=== PATIENT | male | born 1955 | race Caucasian/White ===

== ENCOUNTER 2025-05-12 12:53 | Emergency (ER) | payer OTHER, MEDICARE, SELFPAY ==
[2025-05-12 13:02] VITALS: BP 167/93; PULSE 79; RESP 18; TEMP 36.5; O2SAT 95; BMI 26.6
--- NOTE | 2025-05-12 13:14 | CRLHL7_ITS ---
For Patients: As a result of the Century Cures Act, medical imaging exams and procedure reports are released immediately into your electronic medical record. You may view this report before your referring provider. If you have questions, please contact your health care provider. Indication: Trauma, pinned between gate and multiple cows, right low back, flank and hip pain. Technique: Noncontrast axial CT of the lumbar spine with coronal and sagittal reformats. Comparison: Same day CT abdomen and pelvis, CT right hip Findings: Acute nondisplaced fracture of the right L1 transverse process. Presumed acute displaced fracture of the right L2 transverse process. Age-indeterminate cortical irregularity of the right 12th rib. Preserved lumbar lordosis. No significant spondylolisthesis. Degenerative Schmorl`s nodes at the L1 and L2 superior endplates. Mild chronic inferior endplate concavity at L5. No high-grade neural foraminal or spinal canal stenosis. Impression: 1. Acute nondisplaced right L1 transverse process fracture. 2. Presumed acute displaced right L2 transverse process fracture. 3. Age-indeterminate right 12th rib deformity. Please note that all CT scans at this facility use dose modulation, iterative reconstruction, and/or weight-based dosing when appropriate to reduce radiation dose to as low as reasonably achievable. Dictated by Lillie Kline MD @ 05/12/2025 2:44:01 PM (Electronically Signed)
--- NOTE | 2025-05-12 13:14 | CRLHL7_ITS ---
For Patients: As a result of the Century Cures Act, medical imaging exams and procedure reports are released immediately into your electronic medical record. You may view this report before your referring provider. If you have questions, please contact your health care provider. INDICATION [Trauma] COMPARISON [None.] TECHNIQUE CT of the abdomen and pelvis with intravenous contrast ([91 milliliters Isovue 370]). CT of the right hip was also performed without intravenous contrast. FINDINGS Lung bases: [No pleural effusion.] Multiple punctate calcified granulomata are noted in the bibasilar lungs. Large hiatal hernia. Liver: [Smooth hepatic contour. Low-attenuation of the liver compatible with steatosis. No suspicious hepatic lesions are identified.] Gallbladder and biliary tree: [Unremarkable CT appearance.] Spleen: [There are few punctate calcified granulomata in the spleen.] Pancreas: [Moderate fatty infiltration of the pancreas.] Adrenal glands: [Normal.] Kidneys and ureters: [No hydroureteronephrosis.] [There are several bilateral renal cysts and subcentimeter hypoattenuating renal lesions which are too small to characterize, but statistically likely to represent cysts. There is a 12 millimeter indeterminate hypoattenuating exophytic left anterior upper pole renal lesion (3/47).] Bladder: [Unremarkable CT appearance.] Visualized reproductive organs: [Mildly enlarged prostate.] Gastrointestinal tract: [There is colonic diverticulosis. No focal abnormally dilated loops of bowel. Large hiatal hernia. 2 centimeter duodenal diverticulum.] Peritoneal cavity: [No free fluid or free air.] Lymph nodes: [No enlarged abdominal or pelvic lymph nodes by CT size criteria.] Vessels: [Mildly tortuous abdominal aorta. There are atherosclerotic vascular changes. Ectasia of the infrarenal abdominal aorta measuring up to 2.2 centimeters in the axial plane. Ectasia of the right common iliac artery measuring 15 millimeters in the axial plane. Ectasia of the left common iliac artery measuring 16 millimeters in the axial plane.] Abdominal and pelvic wall: [Tiny fat containing left inguinal hernia. Focal fatty change in the left rectus femoris muscle is compatible with a old muscular tear.]Scarring in the ventral abdominal wall. Bones: [There are osseous degenerative changes including mild degenerative change of the right hip.] Please see separately dictated report for findings in the lumbar spine. Aside from in the lumbar spine, there are no acute osseous findings. IMPRESSION [No acute findings in the abdomen or pelvis.] No acute osseous findings in the right hip. [Please see separately dictated report for findings in the lumbar spine.] A 12 millimeter hypoattenuating exophytic left anterior upper pole renal lesion is indeterminate. Recommend nonemergent renal ultrasound to further assess. Ectasia of the infrarenal abdominal aorta and bilateral common iliac arteries. Please see above for several incidental and chronic findings. Please note that all CT scans at this facility use dose modulation, iterative reconstruction, and/or weight-based dosing when appropriate to reduce radiation dose to as low as reasonably achievable. Dictated by: David Carpenter MD @ 05/12/2025 15:03:58 (Electronically Signed)
--- NOTE | 2025-05-12 13:15 | CRLHL7_ITS ---
For Patients: As a result of the 21st Century Cures Act, medical imaging exams and procedure reports are released immediately into your electronic medical record. You may view this report before your referring provider. If you have questions, please contact your health care provider. INDICATION: Trauma COMPARISON: None. TECHNIQUE: CT of the abdomen and pelvis with intravenous contrast (91 milliliters Isovue 370). CT of the right hip was also performed without intravenous contrast. FINDINGS: Lung bases: No pleural effusion. Multiple punctate calcified granulomata are noted in the bibasilar lungs. Large hiatal hernia. Liver: Smooth hepatic contour. Low-attenuation of the liver compatible with steatosis. No suspicious hepatic lesions are identified. Gallbladder and biliary tree: Unremarkable CT appearance. Spleen: There are few punctate calcified granulomata in the spleen. Pancreas: Moderate fatty infiltration of the pancreas. Adrenal glands: Normal. Kidneys and ureters: No hydroureteronephrosis. There are several bilateral renal cysts and subcentimeter hypoattenuating renal lesions which are too small to characterize, but statistically likely to represent cysts. There is a 12 millimeter indeterminate hypoattenuating exophytic left anterior upper pole renal lesion (3/47). Bladder: Unremarkable CT appearance. Visualized reproductive organs: Mildly enlarged prostate. Gastrointestinal tract: There is colonic diverticulosis. Normal appendix. No focal abnormally dilated loops of bowel. Large hiatal hernia. 2 centimeter duodenal diverticulum. Peritoneal cavity: No free fluid or free air. Lymph nodes: No enlarged abdominal or pelvic lymph nodes by CT size criteria. Vessels: Mildly tortuous abdominal aorta. There are atherosclerotic vascular changes. Ectasia of the infrarenal abdominal aorta measuring up to 2.2 centimeters in the axial plane. Ectasia of the right common iliac artery measuring 15 millimeters in the axial plane. Ectasia of the left common iliac artery measuring 16 millimeters in the axial plane. Abdominal and pelvic wall: Tiny fat containing left inguinal hernia. Focal fatty change in the left rectus femoris muscle is compatible with a old muscular tear. Bones: There are osseous degenerative changes including mild degenerative change of the right hip. Please see separately dictated report for findings in the lumbar spine. Aside from in the lumbar spine, there are no acute osseous findings. IMPRESSION: 1. No acute findings in the abdomen or pelvis. No acute osseous findings in the right hip. 2. Please see separately dictated report for findings in the lumbar spine. 3. A 12 millimeter hypoattenuating exophytic left anterior upper pole renal lesion is indeterminate. Recommend nonemergent renal ultrasound to further assess. 4. Ectasia of the infrarenal abdominal aorta and bilateral common iliac arteries. 5. Please see above for several incidental and chronic findings. Please note that all CT scans at this facility use dose modulation, iterative reconstruction, and/or weight-based dosing when appropriate to reduce radiation dose to as low as reasonably achievable. Dictated by David Carpenter MD @ 05/12/2025 3:01:51 PM (Electronically Signed)
--- NOTE | 2025-05-12 13:27 | ED_ITS ---
HPI - Back Pain/Injury General Date Seen: 05/12/25 Chief Complaint: Back Injury/Pain Stated Complaint: squished by cows, back pain Time Seen by Provider: 05/12/25 12:56 Source: patient Mode of arrival: ambulatory Limitations: no limitations History of Present Illness HPI Narrative: Patient is a 69-year-old male who has not seen a primary care provider in years presenting to the emergency department for low back pain. He states about hour prior to arrival she was moving some calms when bunch of them postop against him. States there was maybe 13 of them. His back was pushed up against a horizontal bar. Since then has been having right low back pain. Insert to position the pain is better. P use worse when he moves. Is not taking anything yet for pain. Has been able to ambulate but it has been painful. Denies any midline back pain or left-sided back pain. Denies any thoracic back pain. Denies any neck pain. Denies a headache. Denies any chest pain, abdominal pain, anterior hip pain. States he urinated since this occurred and his urine was normal. [place] like he fully emptied his bladder. Has not had any associated numbness or saddle anesthesia. Related Data Home Medications ?Medication ?Instructions ?Recorded ?Confirmed No Known Home Medications 05/12/25 0712/06 Allergies Allergy/AdvReac Type Severity Reaction Status Date / Time No Known Drug Allergies Allergy Verified 05/12/25 13:05 Review of Systems Narrative: Pertinent systems reviewed and were negative unless stated in HPI PFSH PFS Social History Smoking Status: Never smoker How often do you have a drink containing alcohol: never AUDIT-C Alcohol total score: 0 Non-prescribed substance use: denies use Exam Narrative: Exam Narrative: Const: Well-nourished, Well-developed, in moderate distress when moving Eyes: PERRL, no conjunctival injection, and symmetrical lids HENT: Atraumatic external nose and ears. Moist mucous membranes. Neck: Symmetric, trachea midline, No thyromegaly. CVS: RRR, No murmurs or gallops. Peripheral pulses 2+ and equal in all extremities RESP: Unlabored respiratory effort. Clear to auscultation bilaterally. GI: Nontender/Nondistended, No rebound or guarding. MSK:Extremities w/o deformity, Normal Active ROM. No midline spinal tenderness. There is some right low back tenderness mostly located over the right superior posterior iliac spine. No tenderness noted to rest of extremities. Skin: Warm, Dry. No rashes or lesions. Neuro: Normal Muscle tone, No focal neurological deficits. Psych: Awake, Alert, & Oriented x3. Appropriate mood and affect. Const: Vital Signs, click to edit/add: Vital Signs - 24 hr 05/12/25 13:02 Temperature 97.7 F Pulse Rate [Pulse Oximeter] 79 Respiratory Rate 18 Blood Pressure [Ri t Upper Arm] 167/93 H Pulse Oximetry 95 Oxygen Delivery Me thod Room Air Course Vital Signs Vital signs: Initial Vital Signs Temperature 97.7 F 05/12/25 13:02 Temperature Source Temporal Artery Scan 05/12/25 13:02 Pulse Rate 79 05/12/25 13:02 Pulse Rhythm Regular 05/12/25 13:02 Pulse Strength 3+ Normal 05/12/25 13:02 Respiratory Rate 18 05/12/25 13:02 Blood Pressure 167/93 H 05/12/25 13:02 Blood Pressure Mean 117 H 05/12/25 13:02 Blood Pressure Position Sitting 05/12/25 13:02 Pulse Oximetry 95 05/12/25 13:02 Oxygen Delivery Method Room Air 05/12/25 13:02 Vital Signs Temperature 97.7 F 05/12/25 13:02 Pulse Rate 79 05/12/25 13:02 Respiratory Rate 18 05/12/25 13:02 Blood Pressure 167/93 H 05/12/25 13:02 Pulse Oximetry 95 05/12/25 13:02 Oxygen Delivery Method Room Air 05/12/25 13:02 Temperature 97.7 F 05/12/25 13:02 Pulse Rate 79 05/12/25 13:02 Respiratory Rate 18 05/12/25 13:02 Blood Pressure 167/93 H 05/12/25 13:02 Pulse Oximetry 95 05/12/25 13:02 Oxygen Delivery Method Room Air 05/12/25 13:02 MDM - Back Pain/Injury MDM Narrative Medical decision making narrative: Patient is 69-year-old male presenting to the emergency department for back shirley n. Considering affect is of action I will do a CT scan of the lumbar spine, right hip an abdomen and pelvis. This will look for any intra-abdominal abnormalities along with any fractures. He denies any injuries to his chest, head, neck so do not believe further imaging is necessary. His vital signs are stable. To do the CT I will need to do a BMP 1st and I will also do a CBC. Patient declines any pain medication. Lab work shows no acute concerning abnormalities. CT scan shows some incidental findings along with a acute nondisplaced right L1 transverse process fracture and a presumed acute displaced right L2 transverse process fracture. This is consistent with his pain. These are stable and does not require braces or neurosurgery follow-up. I did inform him he should follow up and get a primary care provider. Abdominal CT shows a lesion on the left kidney which recommends none emergent renal ultrasound. Also has some ectasia of the infrarenal abdominal aorta and bilateral common iliac arteries. 2.2 cm at the largest. This can be followed up outpatient 2. I explained to him the importance of setting up primary care. He states he understands. Lab Data Labs: Lab Results 05/12/25 Range/Units 13:23 WBC 9.53 (4.50-11.00) K/uL RBC 5.16 (4.30-5.90) m/uL Hgb 15.0 (13.5-17.5) gm/dL Hct 47.4 (37.0-53.0) % MCV 92 (80-100) fL MCH 29 (26-34) pg MCHC 32 (32-36) gm/dL RDW Coeff of Ashish 13.9 (11.5-15.5) % Plt Count 239 (140-440) K/uL Neut % (Auto) 83.7 H (42.0-72.0) % Lymph % (Auto) 9.3 L (20-44) % Beauregard % (Auto) 5.6 (0.0-11.0) % Eos % (Auto) 1.2 (0.0-7.0) % Baso % (Auto) 0.1 (0.0-3.0) % Neut # (Auto) 8.00 H (1.7-7.0) K/uL Lymph # (Auto) 0.90 (0.90-2.90) K/uL Beauregard # (Auto) 0.50 (0.00-0.90) K/UL Eos # (Auto) 0.11 (0.00-0.50) K/uL Baso # (Auto) 0.01 (0.00-0.30) K/uL Abs Immat Gran (auto) 0.01 (0.00-0.30) K/uL Imm/Tot Granulo (auto) 0.1 % Sodium 143 (135-149) mmol/L Potassium 5.3 H (3.6-5.1) mmol/L Chloride 107 (96-114) mmol/L Carbon Dioxide 29 (20-32) mmol/L Anion Gap 7 (7-15) mEq/L BUN 21 (7-30) mg/dL Creatinine 1.0 (0.5-1.5) mg/dL Estimated Creat Clear 71.99 Estimated GFR 81 ml/min Glucose 107 (60-115) mg/dL Calcium 10.6 (8.4-10.6) mg/dL Discharge Plan Discharge Clinical Impression: Fracture of transverse process of lumbar vertebra Qualifiers: Encounter type: initial encounter Fracture type: closed Qualified Code(s): S32. 009A - Unspecified fracture of unspecified lumbar vertebra, initial encounter for closed fracture Patient Disposition: Home, Self-Care Condition: Stable Instructions: Transverse Process Fracture (ED) Additional Instructions: I recommend setting up a primary care provider. They will help you get the of the patient renal ultrasound for your left renal cyst. There is also some mild dilation of your abdominal aorta. Recommended follow-up with this outpatient also. You do have to transverse process fractures. This is considered stable and does not require surgery. Take the oxycodone as needed for pain. He can also use ibuprofen and Tylenol. Return to emergency department for new or worsening symptoms. Try to stay as active as you can tolerate Prescriptions: No Action No Known Home Medications Follow Up/Referrals: Provider,Not a Local [Primary Care Provider, Family Practice] Stand Alone Forms: [employer] Info Instructions
[2025-05-12 13:47] LABS: Chloride* 107 mmol/L (96-114); Potassium* 5.3 mmol/L (3.6-5.1); Sodium* 143 mmol/L (135-149)
[2025-05-12 13:50] LABS: Anion Gap 7 mEq/L (7-15); Blood Urea Nitrogen* 21 mg/dL (7-30); Calcium* 10.6 mg/dL (8.4-10.6); Carbon Dioxide* 29 mmol/L (20-32); Creatinine* 1.0 mg/dL (0.5-1.5); Est. Creatinine Clearance* 71.99; Estimated Glomerular Filt Rate 81 ml/min; Glucose* 107 mg/dL (60-115)
[2025-05-12 13:55] LABS: Hematocrit 47.4 % (37.0-53.0); Hemoglobin* 15.0 gm/dL (13.5-17.5); Immature Granulocytes Abs Auto 0.01 K/uL (0.00-0.30); Immature Granulocytes Pct Auto 0.1 %; Mean Corpuscular HGB Conc 32 gm/dL (32-36); Mean Corpuscular Hemoglobin 29 pg (26-34); Mean Corpuscular Volume 92 fL (80-100); RDW Coefficient of Variation % 13.9 % (11.5-15.5); Red Blood Count 5.16 m/uL (4.30-5.90); White Blood Count* 9.53 K/uL (4.50-11.00)
--- OUTSIDE RECORDS SUMMARY | 2025-05-12 13:56 | XMS_ITS | Clinical Summary ---
Author Organization [facility] Address [address] [place] [id number] Care Team Providers Care Cyber Ops Planner Name Role Phone None Primary Care Provider Unavailabl e Allergies No known active allergies Medications No known medications Social History Tobacco Use Types Packs/Day Years Used Date Smoking Tobacco: Never Assessed Interpersonal Safety Answer Date Record ed Are you being hit, kicked, p ushed or yelled at (see row info)? No 03/27/2024 Interpersonal Safety Abuse 12 - 18 Not on file 03/27/2024 Interpersonal Safety Ambulatory Vulnerability No t on file 03/27/2024 Sex and Gender Information Value Date Recorded Sex Assigned at Not on file Legal Sex Male 11:52 AM CDT Gender Identity Not on file Sexual Orientation Not on file Last Filed Vital Signs Vital Sign Reading Time Taken Comments Blood Pressure 158/94 03/27/2024 3:37 PM CDT Pulse 78 03/27/2024 3:37 PM CDT Temperature 36.7 C (98 F) 03/27/2024 1:35 PM CDT Respiratory Rate 18 03/27/2024 3:37 PM CDT Oxygen Saturation 96% 03/27/2024 3:37 PM CDT Inhaled Oxygen Concentration - - Weight 82.1 kg (181 lb) 03/27/2024 1:35 PM CDT Height 177.8 cm (5' 10) 03/27/2024 1:35 PM CDT Body Mass Index 25.97 03/27/2024 1:35 PM CDT Plan of Treatment Not on file Insurance MEDICARE PART B HB ONLY [employer] MED[employer]ARE ADVANTAGE Care Teams Cyber Ops Planner Relationship Specialty Start Date End Date None . PCP - General 03/27/24
--- OUTSIDE RECORDS SUMMARY | 2025-05-12 13:56 | XMS_ITS | Patient Health Record ---
Author Organization [facility] Address [address] [place] [address] Care Team Providers Care Development Spec Name Role Phone None, None Primary Care Provider KELL Beaver Unavailable [phone] NURA GUERRERO Unavailable [phone] Allergies No Known Allergies Reason For Referral No Information Medications Medication SIG (Take, Route, Frequency, Duration) Notes Start Date End Date Status Silver colloidal Unknown Belladonna Alk-Phenobarb ER Unknown Gabapentin 300 MG Capsule 1 tab daily x 1 day, 1 tab twice daily x 1 day, 1 tab 3 times daily after that Orally Once a day; Duration: 30 days 04/01/2024 Active Social History Tobacco Use: Social History Observation Description Date Details (start date - stop date) Never Smoker NA - NA Social History Drug/Alcohol: Social Info Question Answer Notes AUDIT-C (Standard) Did you have a drink containing alcohol in the past year? 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 Problem Sensorineural hearing loss (SNHL) of right ear with restricted hearing of left ear (H90.A21) Active confirmed Problem Hoarseness (26000010) Hoarseness (R49.0) Active confirmed Plan Of Treatment No Information Insurance Providers Payer Name Payer Address Payer Phone Subscriber Number Group Number Insured Name Patient Relationship to Insured Coverage Start Date Coverage End Date [employer] Medicare Plans [address] [place], [place] [id number] [employer]pi [place] Self - patient is the insured 4 MEDICARE [address] [place] [phone] [id number] [employer]pi [place] Self - patient is the insured Medical (General) History Surgical History Surgery Date(Month/Year) hernia repair R shoulder replacement
[2025-05-12 14:00] LABS: Lymphocytes Absolute Auto 0.90 K/uL (0.90-2.90); Slide Review Reflex No
[2025-05-12 15:50] VITALS: BP 184/119; PULSE 62; RESP 16; O2SAT 97
== END 2025-05-12 16:11 | disposition home or self-care (01) ==
PROVIDERS: Emergency Provider Student in an Organized Health Care Education/Training Program
DX: S32.018A Other fracture of first lumbar vertebra, initial encounter for closed fracture (principal); W55.22XA Struck by cow, initial encounter
CPT/HCPCS: 36415; 72131; 73700; 74177; 80048; 85025; 99284; Q9967